=== PATIENT | female | born 1995 | race Caucasian/White ===

== ENCOUNTER 2023-11-22 08:03 | Outpatient (CLI) | payer BC, SELFPAY ==
--- NOTE | 2023-11-22 08:15 | CRLHL7_ITS ---
For Patients: As a result of the Century Cures Act, medical imaging exams and procedure reports are released immediately into your electronic medical record. You may view this report before your referring provider. If you have questions, please contact your health care provider. INDICATION: First trimester scan, establish dates. COMPARISON: None. TECHNIQUE: Real-time swan-scale imaging of the pelvis was performed. FINDINGS: Sonographic imaging demonstrates a single living intrauterine gestation. The embryo demonstrates a regular cardiac rate measuring 173 beats per minute. The embryo`s crown-rump length measurement of 4.2 cm corresponds to a gestational age of 11 weeks 1 day with a sonographic due date of 06/11/2024. There is a normal-appearing yolk sac. There are no gross abnormalities noted within the embryo at this early state of development. The gestational sac has a normal appearance. There is no evidence of a perigestational hemorrhage. The amount of fluid within the sac appears appropriate for gestational age. The cervix is closed. The myometrium appears normal. The ovaries are of normal size. Corpus luteal cyst right ovary. There are no suspicious fluid collections noted in the cul-de-sac. IMPRESSION: Normal first trimester OB ultrasound exam. Gestational age calculated at 11 weeks 1 day with a sonographic due date of 06/11/2024. Dictated by Yefri Martínez MD @ 11/22/2023 9:15:27 AM (Electronically Signed)
== END 2023-11-22 08:04 | disposition home or self-care (01) ==
LOC: US 08:06
PROVIDERS: Visit Provider Advanced Practice Midwife
DX: Z34.91 Encounter for supervision of normal pregnancy, unspecified, first trimester (principal); Z3A.10 10 weeks gestation of pregnancy
CPT/HCPCS: 76817; 86592; 86703; 86704; 86706; 86762; 86787; 86803; 86850; 86900; 86901; 87086; 87340

== ENCOUNTER 2024-01-30 16:53 | Outpatient (CLI) | payer BC, SELFPAY ==
--- NOTE | 2024-01-30 17:00 | US_ITS ---
Patient: AMAIRANI CARRILLO Facility:?[facility] Patient ID:?[id number] Site Patient ID:?[id number]. Site :?[id number] Study:?US-OB Pelvis OB > 14wks-01/30/2024 6:20:05 PM Ordering Physician:Belkys Recinos Final Report: HISTORY: anatomic survey. COMPARISON: Early OB ultrasound from 11/22/2023. TECHNIQUE: Ultrasound examination of the is performed with transabdominal technique. FINDINGS: A single intrauterine gestation is seen in variable presentation, ending in breech presentation at the conclusion of the examination. There is regular cardiac activity at 145 beats per minute. The placenta is posterior and is free of the cervical os. The placental grade is 0 and the amniotic fluid volume is normal. Single deepest vertical pocket: Normal at 4.9 cm. Cervical length is normal at 5.6 centimeters. BPD: 4.9 cm 20 weeks 5 days HC: 18.0 cm 20 weeks 3 days AC: 15.6 cm 20 weeks 5 days FL: 3.3 cm 20 weeks 2 days The estimated age by ultrasound is 20 weeks 5 days, with an estimated date of delivery of 06/13/2024. This correlates well with the clinical age of 20 weeks 2 days and the previous ultrasound. The ultrasound ratios are normal. The estimated weight is 360 grams which is at the 59th percentile based on the clinical dates. The anatomic survey demonstrates normal appearing intracranial structures with a normal septum pellucidum and normal cerebellum. The nuchal thickness is normal at 3 mm, and the lateral ventricle is normal in diameter at 5 mm. The upper lip, 4 chamber heart, left and right ventricular outflow tracts, diaphragm, stomach, cord insertion site, 3-vessel cord, kidneys, bladder and spine are normal in appearance. IMPRESSION: 1. Single intrauterine gestation in variable presentation with regular cardiac activity, in breech presentation at the end of the examination. 2. Estimated gestational age is 20 weeks 5 days. 3. Estimated weight is 360 grams which is at the 59th percentile based on the clinical dates. 4. There has been appropriate interval growth. Dictated by Nathen Sheriff MD @ 02/02/2024 11:02:37 AM Signed by:?Nathen Sheriff MD @02/02/2024 11:02:37 AM (Electronic Signature)
== END 2024-01-30 16:54 | disposition home or self-care (01) ==
LOC: US 16:55
PROVIDERS: Visit Provider Advanced Practice Midwife
DX: Z34.02 Encounter for supervision of normal first pregnancy, second trimester (principal); Z3A.20 20 weeks gestation of pregnancy
CPT/HCPCS: 76805

== ENCOUNTER 2024-03-31 09:32 | Outpatient (CLI) | payer BC, SELFPAY | END 2024-03-31 09:33 | disposition home or self-care (01) | LOC: NFLDREF 04-04 15:06 | PROVIDERS: Visit Provider Advanced Practice Midwife | DX: Z34.03 Encounter for supervision of normal first pregnancy, third trimester (principal) | CPT/HCPCS: 86592 ==

== ENCOUNTER 2024-05-21 14:23 | Outpatient (CLI) | payer OTHER, SELFPAY ==
[2024-05-22 15:17] LABS: Strep B DNA Probe Negative (Negative)
[2024-05-22 19:10] LABS: Strep B Susceptibility Needed? No
== END 2024-05-21 14:24 | disposition home or self-care (01) ==
LOC: NFLDREF 14:23
PROVIDERS: Visit Provider Advanced Practice Midwife
DX: Z34.93 Encounter for supervision of normal pregnancy, unspecified, third trimester (principal)
CPT/HCPCS: 87081; 87653

== ENCOUNTER 2024-06-02 04:21 | Inpatient (IN) | payer OTHER, SELFPAY ==
[2024-06-02] VITALS (20 sets, daily range): BP systolic 102–155; BP diastolic 50–92; PULSE 70–114; RESP 16–18; TEMP 36.5–37.2; O2SAT 97–100
[2024-06-02 05:04] LABS: Hematocrit 38.8 % (33.0-51.0); Hemoglobin* 12.8 gm/dL (12.0-16.0); Mean Corpuscular HGB Conc 33 gm/dL (32-36); Mean Corpuscular Hemoglobin 30 pg (26-34); Mean Corpuscular Volume 91 fL (80-100); Platelet Count* 226 K/uL (140-440); Red Blood Count 4.26 m/uL (4.00-5.20); White Blood Count* 19.07 K/uL (4.50-11.00)
[2024-06-02 05:06] LABS: Slide Review Reflex No
[2024-06-02 05:19] LABS: Alanine Aminotransferase* 26 U/L (4-35); Aspartate Amino Transferase* 35 U/L (12-35); Blood Urea Nitrogen* 9 mg/dL (5-24); Creatinine* 0.4 mg/dL (0.5-1.5); Estimated Glomerular Filt Rate 136 ml/min
[2024-06-02] MEDS: OXYTOCIN 10 UNIT/ML INJ IM (07:40)
--- NOTE | 2024-06-02 07:53 | CRLHL7_ITS ---
For Patients: As a result of the Cures Act, medical imaging exams and procedure reports are released immediately into your electronic medical record. You may view this report before your referring provider. If you have questions, please contact your health care provider. INDICATION: Placenta not attaching for removal TECHNIQUE: Ultrasound pelvis transabdominal. Real-time sonographic images with spectral and color Doppler imaging of the ovaries were obtained. COMPARISON: None FINDINGS: Uterus: There is demonstration of an intact posterior placenta. IMPRESSION: Intact posterior placenta. Dictated by Javi Perez MD @ 06/02/2024 8:30:36 AM (Electronically Signed)
[2024-06-02] MEDS: miSOPROStoL 200 MCG TABLET 800 MCG VAGINAL (07:59)
--- NOTE | 2024-06-02 08:12 | PM.OBCN1 ---
OB - CN: HPI Date of Consult Time Seen by Provider: 07:45 Date Seen: 06/02/24 Consult date: 06/02/24 Requesting Physician: Bernice Shin CNM Primary Care Provider: Not a Local Provider Consult Narrative Narrative: Leyda is a 28 year old G 1 P 0 at 38.0 weeks gestation that was admitted to the Center on 06/02/24 for the spontaneous labor. She had a spontaneous vaginal delivery over intact perineum at 0656 I was consulted at time 0745 for retained placenta. She received IM pitocin. Leyda was extremely hesitant for intervention but there was increased bleeding the longer the placenta has been retained. Cord was previously avulsed. On my exam, there was only a small amount of placenta and membrane that can be palpated through the cervical os. Unable to tolerate any more invasive exam due to being unmedicated. I was unable to utilize a bedside ultrasound to assess intrauterine due to it being used in another OR case. Thus, a limited ultrasound from radiology was requested. I discussed with Leyda that I will likely need to do a manual removal of the placenta and possibly suction D&C based on my physical exam. She prefers to wait until we have ultrasound assessment prior to discussing any possible procedures. Leyda asked for misoprostol or Methergine to try to help deliver the placenta as she wants to avoid surgical intervention. Discussed with Leyda that I don't think these medications will be effective in her particularly clinical scenario as most of the placenta is still in utero and this is a full term placenta, not a 2nd trimester one. 2nd trimester IUFD is where we will use medications such as Methergine and misoprostol to help deliver retained placenta. Regardless after counseling, she would like to try one more thing prior to proceeding to the OR. I was ok with 800 mcg of misoprostol rectally while she is getting her ultrasound. US confirmed intact posterior placenta essentially entirely inside the uterus. Discussed with Leyda again that we need to manually remove the placenta and possible need for suction curettage to decrease her risk of hemorrhage and infection. She consented for: exam under anesthesia, manual removal of the placenta, and dilation & curettage. She understands that the four main categories of risk include pain, bleeding, infection, and damage to surrounding structures. Intraoperative pain will be manage with per anesthesia's recommendation (either spinal or general anesthesia). Postop, her pain will be similar to pain that is managed with ibuprofen and Tylenol. Regarding infection, she understands that we will be delivering appropriate antibiotics due to needing manual evacuation of the placenta. She understands that most injuries can be addressed at the time of surgery, however, such an injury may require additional surgeries to fix. That she is at risk for hemorrhage. While this bleeding can be addressed with multiple medical and surgical modalities, there is the possibility of needing a blood transfusion. Leyda did request to have her placenta return to her as she plans on encapsulating the placenta. She does not want it sent to pathology. We discussed that this is not our standard protocol. In this clinical scenario, I generally send placenta to pathology to assess for completeness and any other etiology of why it was retained. Without this information, we could be missing critical information that affects her health and future pregnancies moving forward. After a lengthy discussion, Leyda continues to strongly desires her placenta and will sign our against medical advice and placenta release form. She consented to CBC and T&S prior to proceeding to the OR. QBL prior to OR: 1,030 cc. History History 1 Elective abortions 0 Para 1 Spontaneous abortions 0 Hx # Term Pregnancies 0 Ectopic pregnancies Hx # Pregnancies 0 Multiple births Number of Living Children 0 Labs GBS status: negative OB Labs: Lab Assessment Start: 06/02/24 04:32 Freq: ONCE Status: Complete Protocol: PC.OBGBS Activity Type Activity Date Activity User E-sign Co-sign Detail Recorded Client Recorded Date Recorded By Document 06/02/24 05:38 [facility] Desktop 06/02/24 05:39 [facility] 06/02/24 05:38 Lab Assessment GBS Status negative GBS Additional Criteria None Is Patient Allergic to Penicillin? 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 ? Education: bachelors? ? 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 ? Partner: Galindo, , transportation? ? Lives with: Galindo? ? Pets: dogs? ? Abuse: Denies past Unable to assess current, partner present? ? Special Diet: Denies? ? Ok with a blood transfusion: yes? ? Culture or muslim beliefs: denies? RISK FACTORS? ? Exercise Times/wk: 3 times a week, walking, yoga or weights. ? ? Depression/Anxiety: anxiety? ? Previous Treatments: lexapro for years 0897-3835. Feels like she is stable without it. Therapy: has also done. ANTHONY: 2 PHQ 9: 2? ? Seat Belt Use: Routinely ? Smoking: Denies past/present? ? Alcohol/day: Denies while ? ? Caffeine: minimal? ? Drug Use: Denies past/present? ? What is your current living situation?: I presently have a place to live Problems where you live: no known problems In the past 12 months, utilities in danger of being shut off: no In past 12 months, lack of transportation kept you from medical appts, meetings, work, or getting things needed for daily living: no In the past 12 mos, have been you worried that your food would run out before you had money to buy more?: never true In the past 12 mos, the food you bought just didn't last and you didn't have money to buy more?: never true How often does anyone, including family, friends and others, physically hurt you: never How often does anyone, including family, friends and others, insult or talk down to you: never How often does anyone, including family, friends and others, threaten you with harm: never How often does anyone, including family, friends and others, scream or curse at you: never Little interest or pleasure in doing things: not at all Feeling down, depressed, or hopeless: not at all Meds Home Medications and Allergies Home Medications ?Medication ?Instructions ?Recorded ?Confirmed ?Type docosahexaenoic acid 200 mg mg PO 11/22/23 05/29/24 History capsule ( DHA) Allergies Allergy/AdvReac Type Severity Reaction Status Date / Time No Known Drug Allergies Allergy Verified 05/29/24 08:11 OB - H&P: Exam Physical Exam: Vital signs: Pulse Resp BP 87 18 134/83 06/02/24 06:05 06/02/24 06:05 06/02/24 06:05 OB - Results Labs Labs: Short CBC 06/02/24 Range/Units 04:58 WBC 19.07 H (4.50-11.00) K/uL Hgb 12.8 (12.0-16.0) gm/dL Hct 38.8 (33.0-51.0) % Plt Count 226 (140-440) K/uL BMP 06/02/24 04:58 BUN 9 Creatinine 0.4 L Liver Function 06/02/24 Range/Units 04:58 AST 35 (12-35) U/L ALT 26 (4-35) U/L
[2024-06-02] MEDS: LACTATED RINGERS 1000 ML 1,000 ML 125 ML IV (08:42)
--- NOTE | 2024-06-02 08:47 | W.PM.LDBA ---
Subjective History of Present Illness Narrative: Patient is being admitted to Labor and Delivery for active labor and SROM of clear fluid. She is a 28 year old at 38w0d gestation. Her full history and physical was dictated by me on 05/29/2024. Please see this for details. Grossly Ruptured. Clear fluid. Pt reports ROM at 1900 06/02/2024. Thuis note is written well after admission due to needs of the unit. The patient chart was reviewed upon arrival. My exam was completed approx 40 min after arrival. Specific Issues/Plans : [employer] home [employer] and casual at [place] [employer] H[employer]P completed 05/29/2024 by Fern [facility] [employer] A[employer] 1. Hx of anxiety, [id number]. Treated with lexapro and therapy, job change also helped. Stable at NOB w/o medication (stopped in 2021) 2. Hep B non-immune. 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 Likely needs PP pap Flu: declines Covid: declines tdap: declined OB - Problem Based A/P Additional Plan (1) : Status: Acute (2) Pain during labor: Status: Acute (3) Gestational hypertension: Status: Acute (4) Anxiety: Problem details: Previously treated w/ lexapro and therapy, stable at NOB Status: Acute (5) SROM (spontaneous rupture of membranes): Status: Acute (6) Retained placenta: Problem details: To OR for removal under general anesthesia Status: Acute Plan ASSESSMENT:?? 28 at 38w0d weeks gestation?? complicated by:??none Labor type: Spontaneous, Active labor, SROM? Category 1 FHR pattern.??? Labor complicated by: elevated BP without diagnosis HTN?? GBS negative? PLAN:?? 1. Routine intrapartum cares as ordered. Continue with expectant management. Desires EMTSL?? 2. Monitoring per policy, intermittent, or continuous as appropriate 3. Planning unmedicated . Desires water . Consent signed. Hep C negative. Candidate for analgesia of choice.??? 4. Patient encouraged to reposition and ambulate to promote physiologic labor and .?? 5. Pre-e labs sent later in labor with 2nd elevated BP.? 6. Anticipate . plan reviewed. OB Exam Physical Exam Vital signs: Pulse Resp BP 87 18 134/83 06/02/24 06:05 06/02/24 06:05 06/02/24 06:05 Narrative: Vitals Reviewed Constitutional:? Alert and oriented x3 HEENT:? Normocephalic, atraumatic Neck:? Supple Lungs:? Clear to auscultation bilaterally Heart:? Regular rate and rhythm, no murmur, rub or gallop Abdomen:? Soft, nontender, and gravid. Vertex by Johnson's, confirmed with cervical exam per nursing. Extremities:? No edema or erythema Cervix: 8 cm per nursing, grossly ruptured NST: 135 bpm/moderate variability/accelerations present/decelerations absent/contractions regular and moderate to palpate
[2024-06-02] MEDS: CEFAZOLIN 2 GM in 0.9 % SODIUM CHLORIDE Mini-bag 100 ML IVPB (08:53)
--- NOTE | 2024-06-02 09:04 | W.PM.VAGDE_ITS ---
OB Procedure Vag Delivery Mother Details Mother Details: The patient is a 28 year-old, 1, now Para 1001, admitted on 06/02/24 at 38w0d gestation. Patient was admitted for spontaneous active labor with gross rupture of clear fluid (onset 1900 06/01/24) and progressed normally. Intermittent monitoring ws utilized until some audible decels prompted continuos monitoring until cat I FHR was confident again. Patient was complete at 0510 and pushing at 0510. Spontaneous intermittent involuntary pushing was present shortly after admission at 0430, when she was found to be 8 cm dilated by the RN. Mild elevations in BP shortly after admit prompted a lab work up for Pre- eclampsia, with normal findings. BPs quickly normalized. of a viable female at 0656 in semifowler's in the tub. Vertex delivered LOP.. No nuchal cord or shoulder. After anterior shoulder was released, the father of the baby was ass isted to deliver his daughter to her mother's arms. Body delivered easily and without incident. Baby had excellent tone and transition, but did not vigorously cry immediately as anticipated with an uncomplicated water . Cord was clamped and cut at > 5 minutes with signs of placental separation so Leyda could exit the tub. APGARS were 8 at one minute and 9 at five minutes respectively. Mouth was bulb suctioned by nursing. Pt was assisted to bed and with further signs of separation of placenta patient was asked to bear down to deliver it. Without any significant bleeding at this time and moderate traction and uterine pressure without placental delivery, we continued to wait for the placenta. Pitocin was recommended at 20 min post delivery to aid in stage 3, but patient still declined. Baby was then encouraged to stimulate the nipples. Bleeding continued to be minimal. No uterine atony detected by twice uterine pressure proced approx 50-100 cc of escape of retroplacental bleeding. Plcental edge palpated within the cervix. Leyda eventually agreed to get up and try to have movement stimulate placental release. She also agreed to pitocin IM to assist and this was given. With excellent pushing efforts in different upright positions and moderate traction on the cord, the placenta did not release. EBL at this time was total 350-400cc. The cord did avulse without any bleeding as a result. Pt was assisted back to bed and baby again assisted to the breast. requested for assistance at approx 45 minutes from . See nursing documentation for detailed timing. Intact perineum with no other lacerations identified. Dr Fernandes arrived for consult. Please see her notes. After her intital assessment, I gave 800 micrograms of misoprostol per rectum as instructed by Dr Fernandes. QBL 700cc cumulative when transferred to the OR. Mother and baby stable; mother plans to breastfeed and did so once prior to operative procedure. weight 6#5.4oz : 1 Para: 0 Weeks Gestation: 38 Admission Date: 06/02/24 Additional Details Amniotic Membrane Status: SROM Amniotic Membrane Rupture Date: 06/01/24 Amniotic Membrane Rupture Time: 19:00 Amniotic Membrane Fluid Description: Clear Analgesia/Anesthesia Type: None Waterbirth: Yes Pitcoin: Yes (approx 30 min post ) Intrapartal Events: None Labor Onset: 04:00 Complete: 05:10 Pushin:10 Heart: heart tones during second stage were checked via intermittent monitoring and no audible decreases heard. See nursing documentation. Delivery Details Delivery Date: 06/02/24 Delivery Time: 06:56 Route of delivery: Infant Gender: Female Infant Viability: Alive; Heart Rate Present Position at Delivery: OP (LOP) Delivery Details: Delivered over intact perineum via spontaneous vaginal delivery. Infant was placed on maternal abdomen.? Cord was clamped and cut after a >30-60 second delay. Mouth were bulb suctioned.? Infant weight pending. 1 Minute Interval Total Score: 8 5 Minute Interval Total Score: 9 Additional Details Shoulder Dystocia: No Placental Delivery Description: SeeORinfo Procedure Done: Global Blood Loss: 700 Laceration: None Episiotomy Description: None Blood Loss Measurement Type: QBL Bakri Used: No Sponge/Need Count Correct: Yes Cord Vessel Description: 3 Vessels, Clamped/Cut and Avulsion (approx 30 min post , see nursing documentation. No bleeding post avulsion) Event Summary Status: Mother and were stable after delivery. Dr Fernandes continued care for the mother for retained placenta. Disposition: floor
--- NOTE | 2024-06-02 09:04 | SUR.OPER ---
PLACENTA SENT WITH PATIENT PER MD/ (AMA FORM SIGNED BY DR. BERNSTEIN)
--- NOTE | 2024-06-02 09:06 | W.ANESCHARGE ---
Anesthesia Charges Start Date/Time Anesthesia Start Date: 06/02/24 Anesthesia Start Time: 08:42 Stop Date/Time Anesthesia Stop Date: 06/02/24 Anesthesia Stop Time: 09:16
[2024-06-02] MEDS: IBUPROFEN 600 MG TABLET PO ×2 (11:28→17:44)
--- NOTE | 2024-06-02 17:21 | P.GYNPRC_ITS ---
Procedure Note Time Seen by Provider: 08:30 Date of procedure: 06/02/24 Will [facility] bill your pro fee for this procedure?: Yes Pre-op diagnosis: 1. Retained placenta 2. hemorrhage Post-op diagnosis: 1. Retained placenta 2. hemorrhage Anesthesia: GETA Complications: None Surgeon: Evelin Baer MD Coverstitch Machine Operator: Aiyana Kwan Estimated blood loss (mL): 50 Urine Output (mL): 200 Pathology: none sent Condition: stable Disposition: floor Procedure Description: PROCEDURE: 1. EUA 2. Ultrasound guided manually removal of the placenta 3. Suction curettage SURGEON: Evelin Baer MD DISH UP PERSON: Tereza Kwan MD for ultrasound assistance FINDINGS: 1. Uterus at umbilicus 2. Normal external genitalia 3. Cervix visually 4 cm dilated, no placental part protruding through. Small amount of membranes protruding through COMPLICATIONS: None PREOP ANTIBIOTIC: 2g of Ancef SPECIMEN: 1. Retained placenta. Patient requested return of the placenta so she can encapsulate it. Does not want placenta sent to pathology. DESCRIPTION OF PROCEDURE: The patient was taken to the operating room where general anesthesia was administered. She was prepared and draped in normal sterile fashion in the dorsal lithotomy position in yellow fin stirrups, taking care to avoid lower extremity hyperextension, hyperflexion or compression. A surgical time-out was performed with the entire operative staff per protocol. Perioperative antibiotics were given and pneumoboots were placed and activated. EUA revealed the above findings. Bladder was drained with straight cath. A speculum was placed in the patient's vagina and cervix was visualized. Unable to grasp onto anything sturdy for traction given that no placenta was protruding through the cervical os. I did a manual sweep all the way up to the fundus to separate the placenta from the uterine wall. Manual extraction of the placenta performed and placenta was removed visually intact. Ultrasound was used to assess endometrial stripe and no obvious retained placenta was visualized. Endometrial strip was thin and uniformed with small amount of clot in the lower uterine segment. Decision was made to perform one pass of suction curettage given that I will not have placenta pathology assessment. The suction curettage was then inserted under direct and ultrasound visualization. The uterus was then gently suction curetted and rotated to clear the uterus of products. Return from suction was only clots. There was minimal bleeding noted after the suction curettage was removed. The uterus was firm and involuted to 2 below umbilicus. Final ultrasound showed uniformed and thin endometrial stripe throughout. All instruments were removed. Debrief performed per protocol and specimen reviewed. While patient did not want placenta sent to pathology, she did consent for me to take a picture of gross pathology to be placed in her chart. The patient tolerated the procedure well. Sponge, lap and needle counts were correct x 2. The patient was taken to the recovery room in stable condition.
[2024-06-03 00:40] VITALS: BP 101/67; PULSE 68; RESP 16; TEMP 36.6; O2SAT 99
[2024-06-03 04:00] VITALS: BP 106/71; PULSE 74; RESP 16; TEMP 36.6; O2SAT 98
[2024-06-03 07:53] VITALS: BP 102/68; PULSE 77; RESP 16; TEMP 36.7; O2SAT 98
[2024-06-03 08:00] VITALS: BMI 25.6
--- NOTE | 2024-06-03 10:12 | PM.OBDSVD1 ---
DS: Providers Provider Date Seen: 06/03/24 Date of admission: 06/02/24 04:21 Primary care physician: Not a Local Provider Admitting Clinician: Bernice Shin CNM Attending Physician on discharge: Bernice Shin CNM Date of Discharge: 06/03/24 DS: Diagnosis Discharge Diagnosis (1) Lactating mother: Status: Acute (2) care following vaginal delivery: Status: Acute (3) Retained placenta: Status: Acute Problem details: To OR for removal under general anesthesia (4) Gestational hypertension: Status: Acute Exam Narrative: Exam Narrative: GENERAL APPEARANCE:? normal affect, alert, no distress? MOOD:? appropriate? CHEST:? clear to auscultation and percussion? HEART:? regular rate and rhythm? ABDOMEN:? soft, non-tender the uterine fundus is U/2 and is appropriate for the stage of recovery? PERINEUM:? mild edema of the perineum, there is a intact perineum that is healing well.? EXTREMITIES:? normal and no edema? Const: Vital Signs, click to edit/add: Vital Signs - 24 hr 06/02/24 10:28 06/02/24 10:42 06/02/24 10:57 Temperature Pulse Rate [Pulse Oximeter] 110 H 106 H 110 H Respiratory Rate 16 16 16 Blood Pressure [Le ft Arm] 115/81 119/82 123/90 H Pulse Oximetry 99 100 100 Oxygen Delivery Me thod 06/02/24 11:12 06/02/24 11:27 06/02/24 11:42 Temperature 98.9 F Pulse Rate [Pulse Oximeter] 110 H 113 H 114 H Respiratory Rate 16 16 Blood Pressure [Le ft Arm] 102/71 122/85 120/79 Pulse Oximetry 100 100 Oxygen Delivery Me thod 06/02/24 16:44 06/02/24 20:45 06/03/24 00:40 Temperature 98.3 F 98.2 F 97.8 F Pulse Rate [Pulse Oximeter] 90 70 68 Respiratory Rate 16 16 16 Blood Pressure [Le ft Arm] 119/79 108/72 101/67 Pulse Oximetry 100 99 99 Oxygen Delivery Me thod Room Air Room Air Room Air 06/03/24 04:00 06/03/24 07:53 Temperature 97.9 F 98.1 F Pulse Rate [Pulse Oximeter] 74 77 Respiratory Rate 16 16 Blood Pressure [Le ft Arm] 106/71 102/68 Pulse Oximetry 98 98 Oxygen Delivery Me thod Room Air Room Air Documenting provider has reviewed patient's vital signs: yes OB - DS: Summary Hospital Course Hospital Course: Leyda is a 28 year old G 1 P 1 at 38.0 weeks gestation that was admitted to the Center on 06/02/24 for spontaneous labor with SROM. She had an uncomplicated vaginal delivery. She delivered a viable female . She is breast feeding and feels it is going well overall. She plans on seeing before discharge. the patient has done well. She is requesting to discharge home today but she is considering staying until tomorrow. She will plan on discharging this afternoon but may consider another night stay depending how today is going. She is planning condoms and NFP for PP contraception. Blood pressures have been stable since delivery and denies headache, RUQ pain or visual changes. Labs were normal in labor. Will send a blood pressure cuff home for home monitoring. Peripartum Data delivery method: Vaginal Laceration description: None Episiotomy description: None Procedures: Procedures Operation Date: 06/02/24 08:25 Actual Procedure Side Surgeon p Suction Dilatation & Curettage, EXAM UNDER ANESTHESIA, MANUAL REMOVAL OF RETAINED PLACENTA, ULTRASOUND GUIDED Evelin Malathi Baer MD complications: none [place] Infant Gender: Female Infant Discharge Plan: Home Status at Discharge Functional status at discharge: independent ambulation Overall status at discharge: patient is progressing back to baseline Time Spent with Patient Time attestation: Total time spent providing and/or coordinating discharge services: Discharge Plan Discharge Disposition: Home, Self-Care Date of Admission: 06/02/24 04:21 Attending Provider on Discharge: Belkys Cifuentes Primary Care Provider: Provider,Not a Local Condition: Stable Anticipated Discharge Date/Time: 06/03/24 15:00 Discharge Medications: New docusate sodium 100 mg Capsule 100 mg PO DAILY Qty: 120 0RF Rx Instructions: Take 1-2 tablets daily as needed for constipation. ferrous sulfate 325 mg (65 mg iron) Tablet 325 mg PO Q48H Qty: 60 0RF ibuprofen 600 mg Tablet 600 mg PO Q6H PRNQty: 30 0RF Continued DHA 200 mg capsule 1 mg PO DAILY Discharge Orders: Discharge Order (Routine); Ordered 06/03/24 Ordered By: Belkys Cifuentes Patient Education: Dilation and Curettage (DC), OB Vaginal/Breast Feeding Additional Instructions: Discharge instructions were reviewed with the patient including signs and symptoms of infection and home going medications.? Lifting Restrictions: 20 pounds for 6? weeks? ?? Do not drive while taking narcotic pain meds.? Off Work or School for 6 weeks.? ?? Symptoms to report to doctor:? -Bleeding that saturates more than one pad per hour? -Passing clots larger than the size of a golf ball? -Pain not relieved by prescribed medication? -Fever above 100.4 degrees Fahrenheit? -A foul vaginal odor? -Difficulty in emotions, mood and functions? -Thoughts of hurting yourself and/or ? -Painful, reddened area in your breast? -Any drainage, redness or tenderness in your IV/epidural site? -Severe headache that doesn't improve after taking medications? -Changes in vision, including temporary loss of vision, blurred vision, and/or light sensitivity? -Upper abdominal pain (usually under ribs on the right side)? -Decrease in urination or painful, frequent urinating? -Chest pain? -Shortness of breath? -Tenderness or pain with redness and/swelling in the calf(s) of your leg? ?? Follow Up in clinic in 2 and 6 weeks.? ?? consultation services are available to all mothers and babies for the first year after delivery.? To make an appointment, please call [phone].? Activity Level: Activity as Tolerated Discharge Diet: Regular Follow Up Appointments: [facility] [Provider Group] Provider,Not a Local [Primary Care Provider] - Forms: [employer] Info Instructions
[2024-06-03 13:47] VITALS: BP 117/79; PULSE 100; RESP 20; TEMP 36.5; O2SAT 98
[2024-06-03] MEDS: DOCUSATE SODIUM 100 MG CAPSULE PO (14:20)
[2024-06-03 22:51] LABS: Rapid Plasma Reagin (RPR) Non Reactive (Non Reactive)
== END 2024-06-03 15:48 | disposition home or self-care (01) | DRG 798 ==
LOC: OB OUT 06-04 10:42
PROVIDERS: Obstetrics & Gynecology; Admitting Provider Midwife; Visit Provider Midwife
PROC: 10D17ZZ Extraction of Products of Conception, Retained, Via Natural or Artificial Opening (ICD-10-PCS; principal; 2024-06-02 08:15)
DX: O13.4 Gestational [pregnancy-induced] hypertension without significant proteinuria, complicating childbirth (principal); Z37.0 Single live birth; O99.344 Other mental disorders complicating childbirth; F41.9 Anxiety disorder, unspecified; O73.0 Retained placenta without hemorrhage; O72.0 Third-stage hemorrhage
CPT/HCPCS: 01965; 36415; 76856; 76998; 82565; 84112; 84450; 84460; 84520; 85018; 85027; 86592; 86850; 86900; 86901; G0463; A9270; J0330; J0690; J1100; J2250; J2405; J2590; J2704; J3010; J7120

== ENCOUNTER 2024-06-08 11:00 | Outpatient (CLI) | payer SELFPAY ==
--- NOTE | 2024-06-08 12:17 | P.LACCB_ITS ---
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 of unspecified breast (ICD-10) Frequent UTI ?N39.0 - Urinary tract infection, site not specified (ICD-10) Delivery Information Delivery type: Vaginal Weeks Gestation: 38 Gestational Age: AGA Weight: 2.875 kg Discharge Weight: 2.863 kg Baby's Information Medications: none Baby's Age at Visit: 6 days Baby's Provider or Clinic: [facility] Reason for Consult Reason for Consult: severe nipple pain for mom with feedings Past Experience Past Experience: No Current Frequency of Day Feedings: every 2-3 hours Frequency of Night Feedings: every 2-3 hours Both Breasts: Yes Suck: strong Latch: shallow and painful Length of Time: 10-15 on 1st side, 5-10 min on 2nd side Pumping Pumping: Yes Quantity Pumped: 30 nl total/pump Supplementing EMB Supplement: Yes Formula Supplement: No Baby Elimination Number of Wet Diapers a Day: 6+ Number of BM a Day: 4+, yellow/seedy Breast/Nipple Condition Breast Information: Breasts WNL, symmetrical and rounded. Intramammary distance <1.5 inches. Nipples are supple without retraction but with fissures and scabbing noted bilaterally. Mom reports feeling full before nursing and breast softening after nursing or pumping session. Engorgement: No Maternal Nipple Condition - Left: Common Nipple and Cracking/ Fissures Maternal Nipple Condition - Right: Common Nipple and Cracking/ Fissures Sore Nipples: Yes Interventions for Sore Nipples: Lansinoh (Mother Love cream) and Other (Silverettes) Onsite Pre-Feed weight: 2.876 kg Pre-Nursing Right Nipple: Redness Post-Nursing Right Nipple: Redness Assessments/Interventions Assessments/Interventions: Nipple fissure/excoriation, likely from shallow latching, especially as mom's milk has come in and babe having a hard time gripping the breast beyond the nipple Discussed options with mom: pump and bottle feed for a few days to allow nipple to heal; work on deeper latch, try nipple shield to keep friction off of nipple. Mom decided to try nipple shield. This was utilized and mom was able to get a deeper latch and reported minimal pain during the feeding session, still utilizing breast sandwich technique and waiting for babe to open wide before bringing to the breast. Baby nursed 15 min on her right side and nipple fissure was still reddened after nursing, but nipple was rounded and less painful per mom. Offered other breast multiple times and babe not interested in feeding more. Discussed wound healing for mom: continue airdrying after feedings, use EBM or Earth Mama cream and silverettes. Discussed pumping and bottling if pain just too intense; pump settings reviewed for comfort. After a few days of wound healing try latching without shield and monitor for pain and nipple shape after feeding; add in 1-2 feedings/day without shield as tolerated. Follow up as needed for ongoing issues/concerns. Meds Home Medications and Allergies Home Medications ?Medication ?Instructions ?Recorded ?Confirmed ?Type docosahexaenoic acid 200 mg 1 mg PO DAILY 11/22/23 06/08/24 History capsule ( DHA) Allergies Allergy/AdvReac Type Severity Reaction Status Date / Time No Known Drug Allergies Allergy Verified 05/29/24 08:11
== END 2024-06-08 11:01 | disposition home or self-care (01) ==
PROVIDERS: Visit Provider Obstetrics & Gynecology
DX: Z39.1 Encounter for care and examination of lactating mother (principal)
CPT/HCPCS: G0463

== ENCOUNTER 2024-07-14 13:17 | Outpatient (CLI) | payer SELFPAY ==
[2024-07-17 01:26] LABS: HPV Source Cervical; HPV, High Risk by TMA Not Detected
== END 2024-07-14 13:18 | disposition home or self-care (01) ==
PROVIDERS: Visit Provider Midwife
DX: Z12.4 Encounter for screening for malignant neoplasm of cervix (principal); Z39.2 Encounter for routine postpartum follow-up
CPT/HCPCS: 87624; 87625; 88141; 88142